=== PATIENT | male | born 1950 | race Caucasian/White ===

== ENCOUNTER 2018-01-24 08:38 | Outpatient (CLI) | payer BC, MEDICARE ==
[2018-01-24 09:00] VITALS: BMI 35.6
[2018-01-24 09:37] LABS: Bilirubin Negative (Negative); Blood, Urine Negative (Negative); Clarity CLOUDY (Clear); Glucose, Urine (Dipstick) Negative (Negative); Leukocyte Negative (Negative); Nitrite Negative (Negative); Protein, Urine (Dipstick) Negative (Neg-Trace); Specific Gravity, Urine 1.018 (1.002-1.036); Urobilinogen 0.2 mg/dL (0.2-1.0)
[2018-01-24 09:40] LABS: Bacteria/HPF None Seen HPF (None Seen); Hyaline Casts/LPF 0-3 HYALINE CAST LPF (0-3 Hyaline); Squamous Epithelial 0-3 HPF (0-3); WBC/HPF 0-3 HPF (0-3)
[2018-01-24 09:44] LABS: Yeast-AUWi Flag 111.2 (0-25.0)
[2018-01-24 09:55] LABS: RBC/HPF 0-3 HPF (0-3); Yeast-All Forms None Seen HPF (None Seen)
[2018-01-24 10:27] LABS: #Eosinphils 0.2 thou/uL (0.0-0.7); #Lymphocytes 1.5 thou/uL (1.20-3.40); #Monocytes 0.6 thou/uL (0.11-0.59); #Neutrophils 4.8 thou/uL (1.40-6.50); %Basophils 0.5 % (0.0-1.0); %Eosinophils 2.4 % (0.0-10.0); %Lymphocytes 21.4 % (21.0-51.0); %Monocytes 8.7 % (0.0-10.0); Mean Corpuscular HGB CONC 34.2 g/dL (32.0-36.0); Mean Corpuscular Hemoglobin 32.9 pg (27.0-31.0); Mean Corpuscular Volume 96.5 fl (80.0-94.0); Mean Platelet Volume 7.7 fL (7.4-10.4); Platelet Count 232 thou/uL (130-400); Red Blood Cell (RBC) Count 4.56 mill/uL (4.70-6.10); White Blood Cell (WBC) Count 7.2 thou/uL (4.8-10.8)
[2018-01-24 10:42] LABS: INR-International Normal Ratio 1.1; PTT 30.7 SEC (22.9-36.1); Prothrombin Time 13.8 SEC (12.0-14.7)
[2018-01-24 10:43] LABS: Anion Gap 11 mmol/L (10-20); BUN (Urea Nitrogen) 15 mg/dL (8.4-25.7); Calc. Creatinine Clearance 115 mL/min (70-130); Calcium 9.4 mg/dL (7.8-10.44); Carbon Dioxide 27 mmol/L (23-31); Chloride 105 mmol/L (98-107); Estimated GFR-MDRD 73; Glucose 114 mg/dL (80-115); Potassium 4.2 mmol/L (3.5-5.1); Sodium 139 mmol/L (136-145)
--- NOTE | 2018-01-24 16:36 | EKG ---
Test Reason : Blood Pressure : / mmHG Vent. Rate : 055 BPM Atrial Rate : 055 BPM P-R Int : 166 ms QRS Dur : 098 ms QT Int : 446 ms P-R-T Axes : 046 002 062 degrees QTc Int : 426 ms Sinus bradycardia Moderate voltage criteria for LVH, may be normal variant Borderline ECG When compared with ECG of 10-AUG-2016 15:12, No significant change was found Confirmed by DR. Berto ROUSSEAU ([id number]) on 01/24/2018 4:36:07 PM Referred By: TRACEYRO Confirmed By:DR. Berto ROUSSEAU
== END 2018-01-24 08:39 | disposition home or self-care (01) ==
LOC: LABBT 08:38
PROVIDERS: ATTEND Orthopaedic Surgery
DX: Z01.818 Encounter for other preprocedural examination (principal); M17.12 Unilateral primary osteoarthritis, left knee
CPT/HCPCS: 80048; 81001; 85025; 85610; 85730; 87081; 93005; 93010

== ENCOUNTER 2018-01-24 09:15 | Inpatient (IN) | payer BC, MEDICARE ==
[2018-02-06] MEDS ORDERED: Vancomycin HCl 1.5 GM in Sodium Chloride 0.9% 250 ML 300 ML IVPB SCH ×2 (06:15→18:00)
[2018-02-06] MEDS ORDERED: Midazolam HCl 2 mg/2 ml Vial ONE (06:29)
[2018-02-06] MEDS ORDERED: Fentanyl 100 MCG/2 ML VIAL ONE ×2 (06:29→09:48)
[2018-02-06] MEDS ORDERED: CEFAZOLIN/Water 2 GM/20 ML SYRINGE ONE (06:35)
[2018-02-06] MEDS ORDERED: Bupivacaine PF 0.5% 30 ML VIAL ONE (06:48)
[2018-02-06] MEDS ORDERED: Ondansetron HCl/PF 4 MG/2 ML Vial IVP PRN ×3 (06:49→09:23)
[2018-02-06] MEDS ORDERED: traMADol HCl 50 MG TAB PO PRN ×3 (06:49→07:31)
[2018-02-06] MEDS ORDERED: Promethazine HCl 25 MG/ML VIAL IM PRN ×3 (06:49→09:23)
[2018-02-06] MEDS ORDERED: HYDROcodone/Acetaminophen 10/325 mg Tablet PO PRN (06:49)
[2018-02-06] MEDS ORDERED: Ketorolac Tromethamine 30 MG/ML VIAL IVP PRN (06:49)
[2018-02-06] MEDS ORDERED: Fentanyl 100 MCG/2 ML VIAL IV PRN (06:50)
[2018-02-06] MEDS ORDERED: Acetaminophen 325 MG TAB PO PRN (07:31)
[2018-02-06] MEDS ORDERED: Zolpidem Tartrate 5 MG TAB PO PRN (07:31)
[2018-02-06] MEDS ORDERED: Tranexamic Acid 1,000 MG in Sodium Chloride 0.9% 100 ML IVPB SCH (07:45)
[2018-02-06] MEDS ORDERED: Ondansetron HCl/PF 4 MG/2 ML Vial ONE ×2 (08:58→11:25)
[2018-02-06] MEDS ORDERED: CeleCOXIB 100 MG CAP PO SCH (09:00)
[2018-02-06] MEDS ORDERED: Promethazine HCl 25 MG/ML VIAL SLOW IVP PRN (09:23)
--- NOTE | 2018-02-06 09:27 | OP ---
DATE OF PROCEDURE: 02/06/2018 PREOPERATIVE DIAGNOSIS: Left knee osteoarthrosis. POSTOPERATIVE DIAGNOSIS: Left knee osteoarthrosis. PROCEDURE PERFORMED: Left total knee replacement using [place] pinless navigation. SURGEON: Diony Suarez M.D. DIRECTOR PERIOPERATIVE: Benedict Richey PA-C. BLOOD LOSS: Minimal. ANESTHESIA: The patient had general anesthetic, also had a preoperative block. IMPLANTS: To the left knee, a [employer]velia Triathlon knee system, the femur was a size 6 cruciate retaini ng femur, size 5 universal tibial baseplate, size 5 x 9 mm CS X3 tibial-bearing, and an asymmetric 29 x 9 X3 patella. DISPOSITION: He went to the recovery room in stable condition. 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 PROCEDURE IN DETAIL: After all appropriate consent forms were explained and signed, the patient was taken back to the Operating Room and at this time was given general anesthetic. Once the level of an esthesia was appropriate, a well-padded tourniquet was placed on the left leg and the leg was then pr epped and draped in standard surgical fashion. The limb was exsanguinated and tourniquet taken up to 300 mmHg. Midline incision was made with a 10 blade down through the skin and subcutaneous tissue. Bovie electrocautery was used to coagulate any brisk venous bleeding. A new blade was used to make a medial parapatellar arthrotomy. Small subperiosteal release was performed medially and excess fat pad was removed. The knee was flexed up to gain access to the femur. The femur was navigated and di stal femoral resection was made. Epicondylar access was used to align our sizing jig and this was pi nned in place. We sized our femur to be a size 6 cruciate retaining femur, 4:1 cutting block was aram lied and pinned. Anterior and posterior chamfer cuts were then made. We navigated out our proximal tibia and made our proximal tibial resection. Spreaders were used to remove any posterior osteophyte s off the back of the femur as well as remaining meniscal tissue. A long alignment tammy was then used to achieve correct rotation of our tibial baseplate and a size 5 universal tibial baseplate was chos en. This was pinned in place. We trialed the polyethylene and a size 5 x 9 mm CS X3 tibial-bearing polyethylene gave us full extension and good stability throughout range of motion. Two towel clips a nd a saw were used to cut our patella. Three lug nuts were drilled and an asymmetric 29 x 9 X3 vieira la was trialed which sat nicely in the trochlear groove. We then drilled our femur and punched our t ibia. All components were removed. The knee was thoroughly irrigated and dried. Cement was mixed i nto the cement gun on the back table. Components were then placed. The knee was held out in full ex tension until the cement had dried. All excess bone cement was removed. Multiple #2 Vicryl stitches as well as a Quill was used to close our extensor mechanism. 0 Quill followed by a running Monoderm was then used to close the skin. Surgicel glue was then used on the skin. Once this had dried, sof t tissue dressing was applied to the limb, tourniquet was let down, and the toes pinked up nicely. T he patient was then awakened and taken to the Recovery Room in stable condition. All counts were cor rect at the end of the case. The patient did receive preoperative IV antibiotics. The patient was i njected with Exparel for postoperative pain relief.
[2018-02-06] MEDS ORDERED: PROPOFOL 200 MG/20 ML VIAL ONE (11:25)
[2018-02-06] MEDS ORDERED: Ketorolac Tromethamine 30 MG/ML VIAL ONE (11:25)
[2018-02-06] MEDS ORDERED: Metoprolol Tartrate 5 MG/5 ML VIAL ONE (11:25)
[2018-02-06] MEDS ORDERED: Dexamethasone 20 MG/5 ML VIAL ONE (11:25)
[2018-02-06] MEDS: Sodium Chloride 0.9% 1,000 ML IV SCH ×2 (11:26→17:51)
[2018-02-06] MEDS ORDERED: Losartan 25 MG TAB PO SCH (11:30)
[2018-02-06] MEDS: Aspirin 81 mg Enteric Coated Tablet PO SCH ×2 (11:35→20:36)
[2018-02-06] MEDS: HYDROcodone/Acetaminophen 10/325 mg Tablet PO PRN ×2 (11:44→20:39)
[2018-02-06] MEDS ORDERED: hydrALAZINE 20 MG/ML VIAL SLOW IVP PRN ×2 (12:05→17:01)
[2018-02-06 12:18] VITALS: BMI 36.9
[2018-02-06] MEDS ORDERED: Bupivacaine 0.25% HCL 30 ML VIAL ONE (12:42)
[2018-02-06] MEDS ORDERED: Ropivacaine 0.5% HCl/PF (150 MG/30 ML VIAL) ONE (12:42)
[2018-02-06] MEDS: CEFAZOLIN/Water 2 GM/20 ML SYRINGE SLOW IVP SCH ×2 (15:39→23:03)
--- NOTE | 2018-02-06 17:00 | PDOC.PN ---
- Subjective Encounter Start Date: 02/06/18 Encounter Start Time: 15:00 Pt seen for management of medical comorbidities, including hypertension. Denies chest pain, shortness of breath, fevers or chills. No nausea or vomiting. - Objective MAR Reviewed: Yes Vital Signs & Weight: Vital Signs (12 hours) Temp Pulse Resp BP BP Pulse Ox 02/06/18 15:57 76 172/83 H 02/06/18 12:00 98.0 F 59 L 18 99 02/06/18 10:45 98.0 F 59 L 18 158/74 H 99 Weight Weight 265 lb Phys Exam - Physical Examination Obese HEENT: moist MMs, oral pharynx no lesions Neck: supple Respiratory: clear to auscultation bilateral Cardiovascular: RRR Gastrointestinal: soft s/p L knee surgery Neurological: moves all 4 limbs Psychiatric: normal affect Skin: no rash Dx/Plan (1) Hypertension Code(s): I10 - ESSENTIAL (PRIMARY) HYPERTENSION Status: Chronic Comment: resume home medications, monitor vital signs and titrate antihypertensives as needed. PRN IV hydralazine for blood pressure spikes. (2) BPH (benign prostatic hyperplasia) Code(s): N40.0 - BENIGN PROSTATIC HYPERPLASIA WITHOUT LOWER URINRY TRACT SYMP Status: Chronic Comment: resume home medications. (3) Arthritis Code(s): M19.90 - UNSPECIFIED OSTEOARTHRITIS, UNSPECIFIED SITE Status: Chronic Comment: s/p L knee surgery. pain management and DVT prophylaxis per orthopedic surgery - Plan * . Code status: Full Review of Systems - Medications/Allergies Allergies/Adverse Reactions: Allergies Allergy/AdvReac Type Severity Reaction Status Date / Time No Known Allergies Allergy Unverified 08/10/16 14:47 Medications: Current Medications Acetaminophen (Tylenol) 650 mg PO Q4H PRN PRN Reason: ARELLANO/ T > 101F; Mild Pain (1-3) Hydrocodone Bitart/Acetaminophen ([place] 10/325) 1 tab PO Q4H PRN PRN Reason: Pain (1-3) Hydrocodone Bitart/Acetaminophen ([place] 10/325) 2 tab PO Q4H PRN PRN Reason: PAIN (4-6) Last Admin: 02/06/18 11:44 Dose: 2 tab Aspirin (Ecotrin) 81 mg PO BID [facility] Last Admin: 02/06/18 11:35 Dose: 81 mg Cefazolin Sodium (Ancef) 2 gm SLOW IVP 1500,2300 [facility] Stop: 02/06/18 23:01 Last Admin: 02/06/18 15:39 Dose: 2 gm Celecoxib (Celebrex) 200 mg PO DAILY [facility] Diphenhydramine HCl (Benadryl) 25 mg PO Q6H PRN PRN Reason: Itching Fentanyl (Sublimaze) 50 mcg IV Q1H PRN PRN Reason: BREAKTHROUGH PAIN Ferrous Gluconate (Fergon) 324 mg PO BID [facility] Hydralazine HCl (Apresoline) 10 mg SLOW IVP Q6H PRN PRN Reason: SBP Greater Than 170 Last Admin: 02/06/18 15:57 Dose: 10 mg Bupivacaine HCl 50 ml/ Sodium (Chloride) 100 mls @ 0 mls/hr NERVE BLCK INF [facility] PRN Reason: As Directed Sodium Chloride (Normal Saline 0.9%) 1,000 mls @ 100 mls/hr IV .Q10H [facility] Last Admin: 02/06/18 11:26 Dose: Not Given Vancomycin HCl 1.5 gm/ Sodium (Chloride) 300 mls @ 200 mls/hr IVPB 1800 [facility] Stop: 02/06/18 20:00 Iron/Minerals/Multivitamins (Theragran M) 1 tab PO DAILY [facility] Ketorolac Tromethamine (Toradol) 15 mg IVP Q6H PRN PRN Reason: Moderate Pain (4-6) Stop: 02/09/18 06:50 Losartan Potassium (Cozaar) 100 mg PO DAILY [facility] Ondansetron HCl (Zofran) 4 mg IVP Q6H PRN PRN Reason: Nausea/Vomiting Lutein 80 Mg Cap 0 each PO DAILY [facility] Pneumococcal 13-Valent Conj Vacc (Prevnar) 0.5 ml IM .ONCE ONE Stop: 02/06/18 21:01 Promethazine HCl (Phenergan) 12.5 mg IM Q4H PRN PRN Reason: Nausea Senna/Docusate Sodium (Senokot S) 2 tab PO BID [facility] Sodium Chloride (Flush - Normal Saline) 10 ml IVF Q12HR [facility] Last Admin: 02/06/18 11:31 Dose: Not Given Sodium Chloride (Flush - Normal Saline) 10 ml IVF PRN PRN PRN Reason: Saline Flush Sodium Chloride (Flush - Normal Saline) 10 ml IVF PRN PRN PRN Reason: Saline Flush Tamsulosin HCl (Flomax) 0.4 mg PO DAILY [facility] Tramadol HCl (Ultram) 50 mg PO Q6H PRN PRN Reason: Mild Pain (1-3) Tramadol HCl (Ultram) 100 mg PO Q6H PRN PRN Reason: Moderate Pain 4-6 Zolpidem Tartrate (Ambien) 5 mg PO HSPRN PRN PRN Reason: Insomnia
[2018-02-06] MEDS: Zolpidem Tartrate 5 MG TAB PO PRN (20:39)
[2018-02-06] MEDS ORDERED: Prevnar 13-Val Conj/PF 0.5 ML SYRINGE IM ONE (21:00)
[2018-02-06] MEDS: Bupivacaine 0.5% 50 ML in Sodium Chloride 0.9% 50 ML NERVE BLCK SCH (23:03)
[2018-02-06] MEDS: diphenhydrAMINE 25 MG CAP PO PRN (23:16)
[2018-02-07] MEDS: Sodium Chloride 0.9% 1,000 ML IV SCH ×3 (02:49→22:23)
[2018-02-07] MEDS: HYDROcodone/Acetaminophen 10/325 mg Tablet PO PRN ×4 (05:00→22:20)
[2018-02-07 05:32] LABS: Hemoglobin 13.2 g/dL (14.0-18.0); Mean Corpuscular HGB CONC 33.8 g/dL (32.0-36.0); Mean Corpuscular Hemoglobin 33.1 pg (27.0-31.0); Mean Corpuscular Volume 97.9 fl (80.0-94.0); Mean Platelet Volume 7.4 fL (7.4-10.4); Platelet Count 228 thou/uL (130-400); RBC Distribution Width 12.2 % (11.5-14.5); Red Blood Cell (RBC) Count 3.97 mill/uL (4.70-6.10); White Blood Cell (WBC) Count 15.9 thou/uL (4.8-10.8)
[2018-02-07] MEDS: Aspirin 81 mg Enteric Coated Tablet PO SCH ×2 (08:42→22:00)
[2018-02-07] MEDS: Losartan 25 MG TAB PO SCH (08:43)
[2018-02-07] MEDS: Tamsulosin HCl 0.4 MG CAP PO SCH ×2 (08:44→22:00)
[2018-02-07] MEDS: Multivitamin W/ Minerals 1 TAB PO SCH (08:44)
[2018-02-07] MEDS: Senokot S 8.6-50 MG TAB PO SCH ×2 (08:44→22:00)
[2018-02-07] MEDS: Ferrous Gluconate 324 MG TAB PO SCH ×2 (08:44→22:00)
[2018-02-07] MEDS ORDERED: LUTEIN PO SCH (09:00)
--- NOTE | 2018-02-07 11:07 | PRG ---
DATE OF SERVICE: 02/07/2018 SUBJECTIVE: Mychal is a 67-year-old white male, who is postop day #1 from a left total knee arthro plasty. Subjectively, he is doing relatively well, but he still describes his pain as 8 or 9. His b lock seems to be working very well subjectively, because he tells me he cannot move his toes very wel l. Otherwise, he is taking oral medicines in conjunction with his block. OBJECTIVE: VITAL SIGNS: Temperature 98.9, pulse 77, blood pressure is 127/76, respiratory rate 16, O2 saturatio ns 95% on room air. GENERAL: He is alert and oriented to person, place, time, and situation. Grossly nonfocal. Appropr iate with examiner and converses easily. He does not appear to be in great pain, as he can carry on a conversation in a very cogent fashion. He is neurovascularly intact in both lower extremities, but he does have a dense block on the left. There is no strike through at the wound. I see no bleeding . LABORATORY DATA: His hemoglobin and hematocrit are 13.2 and 38.9 and stable. IMPRESSION: A 67-year-old white male, 1. Postoperative day #1 left total knee arthroplasty, doing relatively well. 2. Mild postoperative hemorrhagic anemia. PLAN: Continue current management. Home discharge tomorrow.
[2018-02-07 11:17] LABS: #Lymphocytes 1.3 thou/uL (1.20-3.40); #Monocytes 1.3 thou/uL (0.11-0.59); #Neutrophils 13.8 thou/uL (1.40-6.50); %Eosinophils 0.2 % (0.0-10.0); %Lymphocytes 7.7 % (21.0-51.0); %Neutrophils 84.2 % (42.0-75.0); Hemoglobin 13.2 g/dL (14.0-18.0); Mean Corpuscular HGB CONC 33.9 g/dL (32.0-36.0); Mean Corpuscular Hemoglobin 33.6 pg (27.0-31.0); Mean Corpuscular Volume 99.1 fl (80.0-94.0); Mean Platelet Volume 7.9 fL (7.4-10.4); Platelet Count 220 thou/uL (130-400); RBC Distribution Width 12.3 % (11.5-14.5); Red Blood Cell (RBC) Count 3.93 mill/uL (4.70-6.10); White Blood Cell (WBC) Count 16.4 thou/uL (4.8-10.8)
[2018-02-07 12:16] LABS: Band 19 % (5-11); Lymphocytes 7 % (21-51); Monocytes 7 % (0-10); PLT Morphology Comment Appears Adequate; Reactive Lymphocytes 3 % (0-10)
[2018-02-07] MEDS ORDERED: Sodium Chloride 0.9% 500 ML IV SCH (13:00)
[2018-02-07] MEDS: Bupivacaine 0.5% 50 ML in Sodium Chloride 0.9% 50 ML NERVE BLCK SCH (13:46)
[2018-02-07] MEDS: Cepastat Lozenges 1 LOZ PO PRN ×2 (16:52→22:17)
[2018-02-07] MEDS: diphenhydrAMINE 25 MG CAP PO PRN (22:14)
[2018-02-07] MEDS: Zolpidem Tartrate 5 MG TAB PO PRN (22:14)
[2018-02-08] MEDS: Bupivacaine 0.5% 50 ML in Sodium Chloride 0.9% 50 ML NERVE BLCK SCH ×2 (02:39→15:19)
[2018-02-08] MEDS: HYDROcodone/Acetaminophen 10/325 mg Tablet PO PRN ×4 (02:45→20:45)
[2018-02-08 05:55] LABS: Hemoglobin 12.2 g/dL (14.0-18.0); Mean Corpuscular HGB CONC 33.5 g/dL (32.0-36.0); Mean Corpuscular Hemoglobin 32.8 pg (27.0-31.0); Mean Corpuscular Volume 98.1 fl (80.0-94.0); Mean Platelet Volume 7.6 fL (7.4-10.4); Platelet Count 199 thou/uL (130-400); RBC Distribution Width 12.1 % (11.5-14.5); Red Blood Cell (RBC) Count 3.71 mill/uL (4.70-6.10)
--- NOTE | 2018-02-08 07:20 | PDOC.PN ---
- Subjective Encounter Start Date: 02/07/18 Encounter Start Time: 13:45 Subjective: pt up in bed no complains, saw pt earlier walking - Objective Vital Signs & Weight: Vital Signs (12 hours) Temp Pulse Resp BP Pulse Ox 02/08/18 00:20 98.5 F 83 19 164/79 H 93 L 02/07/18 20:00 98.4 F 80 18 161/77 H 93 L Weight Admit Weight 265 lb Weight 265 lb I&O: 02/07/18 02/08/18 02/09/18 06:59 06:59 06:59 Intake Total 2276 920 Output Total 800 600 Balance 1476 320 Result Diagrams: 02/08/18 05:06 Phys Exam - Physical Examination HEENT: PERRLA, moist MMs, sclera anicteric, TM's clear, oral pharynx no lesions , 2+ tonsils Neck: no nodes, no JVD, supple, full ROM Respiratory: no wheezing, no rales, no rhonchi, wheezing present, clear to auscultation bilateral Cardiovascular: RRR, no significant murmur, no rub, gallop, irregular Gastrointestinal: soft, non-tender, no distention, positive bowel sounds Musculoskeletal: no edema, pulses present, edema present Neurological: non-focal, normal sensation, moves all 4 limbs Dx/Plan - Plan 1) Htn 2) bph 3) leukocytosis plan: will continue pt's home meds. pt has been urinating without any issues. stool softener added. pt states that he will drink prune juice today. pt is afebrile, ua done 5/1 normal. will monitor. * . Review of Systems - Review of Systems Eyes: negative: Pain, Vision Change, Conjunctivae Inflammation, Eyelid Inflammation, Redness, Other ENT: negative: Ear Pain, Ear Discharge, Nose Pain, Nose Discharge, Nose Congestion, Mouth Pain, Mouth Swelling, Throat Pain, Throat Swelling, Other Respiratory: negative: Cough, Dry, Shortness of Breath, Hemoptysis, SOB with Excertion, Pleuritic Pain, Sputum, Wheezing Cardiovascular: negative: chest pain, palpitations, orthopnea, paroxysmal nocturnal dyspnea, edema, light headedness, other Gastrointestinal: negative: Nausea, Vomiting, Abdominal Pain, Diarrhea, Constipation, Melena, Hematochezia, Other Genitourinary: negative: Dysuria, Frequency, Incontinence, Hematuria, Retention , Other - Medications/Allergies Allergies/Adverse Reactions: Allergies Allergy/AdvReac Type Severity Reaction Status Date / Time No Known Allergies Allergy Unverified 08/10/16 14:47 Medications: Current Medications Acetaminophen (Tylenol) 650 mg PO Q4H PRN PRN Reason: ARELLANO/ T > 101F; Mild Pain (1-3) Hydrocodone Bitart/Acetaminophen ([place] 10/325) 1 tab PO Q4H PRN PRN Reason: Pain (1-3) Hydrocodone Bitart/Acetaminophen ([place] 10/325) 2 tab PO Q4H PRN PRN Reason: PAIN (4-6) Last Admin: 02/08/18 02:45 Dose: 2 tab Aspirin (Ecotrin) 81 mg PO BID [facility] Last Admin: 02/07/18 22:00 Dose: 81 mg Celecoxib (Celebrex) 200 mg PO DAILY [facility] Diphenhydramine HCl (Benadryl) 25 mg PO Q6H PRN PRN Reason: Itching Last Admin: 02/07/18 22:14 Dose: 25 mg Fentanyl (Sublimaze) 50 mcg IV Q1H PRN PRN Reason: BREAKTHROUGH PAIN Ferrous Gluconate (Fergon) 324 mg PO BID [facility] Last Admin: 02/07/18 22:00 Dose: 324 mg Hydralazine HCl (Apresoline) 10 mg SLOW IVP Q6H PRN PRN Reason: SBP Greater Than 170 Bupivacaine HCl 50 ml/ Sodium (Chloride) 100 mls @ 0 mls/hr NERVE BLCK INF [facility] PRN Reason: As Directed Last Admin: 02/08/18 02:39 Dose: 100 mls Sodium Chloride (Normal Saline 0.9%) 1,000 mls @ 100 mls/hr IV .Q10H [facility] Last Admin: 02/07/18 22:23 Dose: Not Given Iron/Minerals/Multivitamins (Theragran M) 1 tab PO DAILY [facility] Last Admin: 02/07/18 08:44 Dose: 1 tab Ketorolac Tromethamine (Toradol) 15 mg IVP Q6H PRN PRN Reason: Moderate Pain (4-6) Stop: 02/09/18 06:50 Last Admin: 02/07/18 08:35 Dose: 15 mg Losartan Potassium (Cozaar) 100 mg PO DAILY [facility] Last Admin: 02/07/18 08:43 Dose: 100 mg Losartan Potassium (Cozaar) 100 mg PO DAILY [facility] Ondansetron HCl (Zofran) 4 mg IVP Q6H PRN PRN Reason: Nausea/Vomiting Promethazine HCl (Phenergan) 12.5 mg IM Q4H PRN PRN Reason: Nausea Senna/Docusate Sodium (Senokot S) 2 tab PO BID [facility] Last Admin: 02/07/18 22:00 Dose: 2 tab Sodium Chloride (Flush - Normal Saline) 10 ml IVF Q12HR [facility] Last Admin: 02/07/18 22:00 Dose: 10 ml Sodium Chloride (Flush - Normal Saline) 10 ml IVF PRN PRN PRN Reason: Saline Flush Sodium Chloride (Flush - Normal Saline) 10 ml IVF PRN PRN PRN Reason: Saline Flush Tamsulosin HCl (Flomax) 0.4 mg PO DAILY [facility] Last Admin: 02/07/18 08:44 Dose: 0.4 mg Tamsulosin HCl (Flomax) 0.4 mg PO HS [facility] Last Admin: 02/07/18 22:00 Dose: 0.4 mg Throat Lozenges (Cepastat Lozenges) 1 beverly PO Q2H PRN PRN Reason: Sore Throat Last Admin: 02/07/18 22:17 Dose: 1 beverly Tramadol HCl (Ultram) 50 mg PO Q6H PRN PRN Reason: Mild Pain (1-3) Tramadol HCl (Ultram) 100 mg PO Q6H PRN PRN Reason: Moderate Pain 4-6 Zolpidem Tartrate (Ambien) 5 mg PO HSPRN PRN PRN Reason: Insomnia Last Admin: 02/07/18 22:14 Dose: 5 mg
[2018-02-08 08:36] LABS: Hemoglobin 12.5 g/dL (14.0-18.0); Mean Corpuscular HGB CONC 33.1 g/dL (32.0-36.0); Mean Corpuscular Hemoglobin 32.7 pg (27.0-31.0); Mean Corpuscular Volume 98.6 fl (80.0-94.0); Mean Platelet Volume 7.4 fL (7.4-10.4); Platelet Count 204 thou/uL (130-400); RBC Distribution Width 12.1 % (11.5-14.5); Red Blood Cell (RBC) Count 3.81 mill/uL (4.70-6.10)
[2018-02-08] MEDS: Tamsulosin HCl 0.4 MG CAP PO SCH ×2 (08:59→20:45)
[2018-02-08] MEDS: Aspirin 81 mg Enteric Coated Tablet PO SCH ×2 (08:59→20:44)
[2018-02-08] MEDS: Losartan 25 MG TAB PO SCH ×2 (08:59→09:01)
[2018-02-08] MEDS: Multivitamin W/ Minerals 1 TAB PO SCH (08:59)
[2018-02-08] MEDS: Ferrous Gluconate 324 MG TAB PO SCH ×2 (09:00→20:44)
[2018-02-08] MEDS: Senokot S 8.6-50 MG TAB PO SCH ×2 (09:00→20:44)
[2018-02-08 10:33] LABS: Band 9 % (5-11); Lymphocytes 13 % (21-51); MDiff Complete? YES; Monocytes 13 % (0-10); Neutrophil 65 % (42-75); RBC Morphology Normal
--- NOTE | 2018-02-08 14:11 | PDOC.PN ---
- Subjective Encounter Start Date: 02/08/18 Encounter Start Time: 13:00 Subjective: pt up in bed no complains - Objective Vital Signs & Weight: Vital Signs (12 hours) Temp Pulse Resp BP BP Pulse Ox 02/08/18 11:35 97.6 F 85 18 142/84 H 96 02/08/18 08:02 98.3 F 84 18 134/75 91 L 02/08/18 04:00 98.6 F 84 18 166/94 H 98 Weight Admit Weight 265 lb Weight 265 lb I&O: 02/07/18 02/08/18 02/09/18 06:59 06:59 06:59 Intake Total 2276 920 1056 Output Total 800 600 850 Balance 1476 320 206 Result Diagrams: 02/08/18 08:06 Phys Exam - Physical Examination HEENT: PERRLA, moist MMs, sclera anicteric, TM's clear, oral pharynx no lesions , 2+ tonsils Neck: no nodes, no JVD, supple, full ROM Respiratory: no wheezing, no rales, no rhonchi, wheezing present, clear to auscultation bilateral Cardiovascular: RRR, no significant murmur, no rub, gallop, irregular Gastrointestinal: soft, non-tender, no distention, positive bowel sounds left knee in dressing Dx/Plan - Plan 1) Htn 2) bph 3) leukocytosis plan: will continue pt's home meds. pt has been urinating without any issues. stool softener added. pt states that he will drink prune juice today. pt is afebrile, ua done 01/24 normal. will monitor. 02/08 pt has not had bm but has flatus. wbc improving bands minimal. * . Review of Systems - Review of Systems Eyes: negative: Pain, Vision Change, Conjunctivae Inflammation, Eyelid Inflammation, Redness, Other ENT: negative: Ear Pain, Ear Discharge, Nose Pain, Nose Discharge, Nose Congestion, Mouth Pain, Mouth Swelling, Throat Pain, Throat Swelling, Other Genitourinary: negative: Dysuria, Frequency, Incontinence, Hematuria, Retention , Other - Medications/Allergies Allergies/Adverse Reactions: Allergies Allergy/AdvReac Type Severity Reaction Status Date / Time No Known Allergies Allergy Unverified 08/10/16 14:47 Medications: Current Medications Acetaminophen (Tylenol) 650 mg PO Q4H PRN PRN Reason: ARELLANO/ T > 101F; Mild Pain (1-3) Hydrocodone Bitart/Acetaminophen ([place] 10/325) 1 tab PO Q4H PRN PRN Reason: Pain (1-3) Hydrocodone Bitart/Acetaminophen ([place] 10/325) 2 tab PO Q4H PRN PRN Reason: PAIN (4-6) Last Admin: 02/08/18 08:58 Dose: 2 tab Aspirin (Ecotrin) 81 mg PO BID [facility] Last Admin: 02/08/18 08:59 Dose: 81 mg Celecoxib (Celebrex) 200 mg PO DAILY [facility] Diphenhydramine HCl (Benadryl) 25 mg PO Q6H PRN PRN Reason: Itching Last Admin: 02/07/18 22:14 Dose: 25 mg Fentanyl (Sublimaze) 50 mcg IV Q1H PRN PRN Reason: BREAKTHROUGH PAIN Ferrous Gluconate (Fergon) 324 mg PO BID [facility] Last Admin: 02/08/18 09:00 Dose: 324 mg Hydralazine HCl (Apresoline) 10 mg SLOW IVP Q6H PRN PRN Reason: SBP Greater Than 170 Bupivacaine HCl 50 ml/ Sodium (Chloride) 100 mls @ 0 mls/hr NERVE BLCK INF [facility] PRN Reason: As Directed Last Admin: 02/08/18 02:39 Dose: 100 mls Sodium Chloride (Normal Saline 0.9%) 1,000 mls @ 100 mls/hr IV .Q10H [facility] Last Admin: 02/07/18 22:23 Dose: Not Given Iron/Minerals/Multivitamins (Theragran M) 1 tab PO DAILY [facility] Last Admin: 02/08/18 08:59 Dose: 1 tab Ketorolac Tromethamine (Toradol) 15 mg IVP Q6H PRN PRN Reason: Moderate Pain (4-6) Stop: 02/09/18 06:50 Last Admin: 02/07/18 08:35 Dose: 15 mg Losartan Potassium (Cozaar) 100 mg PO DAILY [facility] Last Admin: 02/08/18 08:59 Dose: 100 mg Losartan Potassium (Cozaar) 100 mg PO DAILY [facility] Last Admin: 02/08/18 09:01 Dose: Not Given Ondansetron HCl (Zofran) 4 mg IVP Q6H PRN PRN Reason: Nausea/Vomiting Promethazine HCl (Phenergan) 12.5 mg IM Q4H PRN PRN Reason: Nausea Senna/Docusate Sodium (Senokot S) 2 tab PO BID [facility] Last Admin: 02/08/18 09:00 Dose: Not Given Sodium Chloride (Flush - Normal Saline) 10 ml IVF Q12HR [facility] Last Admin: 02/08/18 09:01 Dose: Not Given Sodium Chloride (Flush - Normal Saline) 10 ml IVF PRN PRN PRN Reason: Saline Flush Sodium Chloride (Flush - Normal Saline) 10 ml IVF PRN PRN PRN Reason: Saline Flush Tamsulosin HCl (Flomax) 0.4 mg PO DAILY [facility] Last Admin: 02/08/18 08:59 Dose: 0.4 mg Tamsulosin HCl (Flomax) 0.4 mg PO HS [facility] Last Admin: 02/07/18 22:00 Dose: 0.4 mg Throat Lozenges (Cepastat Lozenges) 1 beverly PO Q2H PRN PRN Reason: Sore Throat Last Admin: 02/07/18 22:17 Dose: 1 beverly Tramadol HCl (Ultram) 50 mg PO Q6H PRN PRN Reason: Mild Pain (1-3) Tramadol HCl (Ultram) 100 mg PO Q6H PRN PRN Reason: Moderate Pain 4-6 Zolpidem Tartrate (Ambien) 5 mg PO HSPRN PRN PRN Reason: Insomnia Last Admin: 02/07/18 22:14 Dose: 5 mg
[2018-02-08] MEDS: Sodium Chloride 0.9% 1,000 ML IV SCH ×3 (16:35→22:49)
[2018-02-08] MEDS: diphenhydrAMINE 25 MG CAP PO PRN (20:48)
[2018-02-08] MEDS: Zolpidem Tartrate 5 MG TAB PO PRN (20:48)
[2018-02-09] MEDS: HYDROcodone/Acetaminophen 10/325 mg Tablet PO PRN ×4 (03:17→19:52)
[2018-02-09] MEDS: Bupivacaine 0.5% 50 ML in Sodium Chloride 0.9% 50 ML NERVE BLCK SCH (03:57)
[2018-02-09 05:32] LABS: Band 4 % (5-11); Eosinophils 1 % (0-10); Hemoglobin 11.8 g/dL (14.0-18.0); Lymphocytes 10 % (21-51); MDiff Complete? YES; Macrocytosis SLIGHT = 6-15 cells (100X) (0-5/hpf); Mean Corpuscular HGB CONC 34.6 g/dL (32.0-36.0); Mean Corpuscular Hemoglobin 34.2 pg (27.0-31.0); Mean Corpuscular Volume 98.9 fl (80.0-94.0); Mean Platelet Volume 7.8 fL (7.4-10.4); Monocytes 10 % (0-10); Neutrophil 75 % (42-75); PLT Morphology Comment Appears Adequate; Platelet Count 196 thou/uL (130-400); Red Blood Cell (RBC) Count 3.46 mill/uL (4.70-6.10)
[2018-02-09] MEDS: CeleCOXIB 100 MG CAP PO SCH (08:40)
[2018-02-09] MEDS: Losartan 25 MG TAB PO SCH (08:40)
[2018-02-09] MEDS: Multivitamin W/ Minerals 1 TAB PO SCH (08:40)
[2018-02-09] MEDS: Senokot S 8.6-50 MG TAB PO SCH ×2 (08:40→19:51)
[2018-02-09] MEDS: Aspirin 81 mg Enteric Coated Tablet PO SCH ×2 (08:40→19:52)
[2018-02-09] MEDS: Ferrous Gluconate 324 MG TAB PO SCH ×2 (08:40→19:52)
[2018-02-09] MEDS: Sodium Chloride 0.9% 1,000 ML IV SCH ×2 (17:28→19:53)
[2018-02-09] MEDS: Tamsulosin HCl 0.4 MG CAP PO SCH (19:52)
[2018-02-09] MEDS: Zolpidem Tartrate 5 MG TAB PO PRN (19:58)
[2018-02-09] MEDS: diphenhydrAMINE 25 MG CAP PO PRN (19:58)
[2018-02-10] MEDS: HYDROcodone/Acetaminophen 10/325 mg Tablet PO PRN ×4 (01:45→13:55)
[2018-02-10 05:46] LABS: Hemoglobin 11.4 g/dL (14.0-18.0); Mean Corpuscular HGB CONC 34.2 g/dL (32.0-36.0); Mean Corpuscular Hemoglobin 33.9 pg (27.0-31.0); Mean Platelet Volume 7.3 fL (7.4-10.4); Platelet Count 245 thou/uL (130-400); Red Blood Cell (RBC) Count 3.38 mill/uL (4.70-6.10); White Blood Cell (WBC) Count 9.6 thou/uL (4.8-10.8)
--- NOTE | 2018-02-10 05:49 | PDOC.PN ---
- Subjective Encounter Start Date: 02/09/18 Encounter Start Time: 10:35 Subjective: pt up in bed no complains - Objective Vital Signs & Weight: Vital Signs (12 hours) Temp Pulse Resp BP BP Pulse Ox 02/10/18 04:03 98.2 F 77 18 125/68 92 L 02/09/18 23:25 98.2 F 81 16 121/76 90 L 02/09/18 20:10 98.1 F 91 18 135/79 94 L 02/09/18 20:00 98.1 F 91 18 94 L Weight Admit Weight 265 lb Weight 265 lb I&O: 02/08/18 02/09/18 02/10/18 06:59 06:59 06:59 Intake Total 920 1546 610 Output Total 600 1650 Balance 320 -104 610 Result Diagrams: 02/10/18 05:19 Phys Exam - Physical Examination HEENT: PERRLA, moist MMs, sclera anicteric, TM's clear, oral pharynx no lesions , 2+ tonsils Neck: no nodes, no JVD, supple, full ROM Respiratory: no wheezing, no rales, no rhonchi, wheezing present, clear to auscultation bilateral Cardiovascular: RRR, no significant murmur, no rub, gallop, irregular Gastrointestinal: soft, non-tender, no distention, positive bowel sounds left knee in jun wrap Dx/Plan - Plan 1) Htn 2) bph 3) leukocytosis plan: will continue pt's home meds. pt has been urinating without any issues. stool softener added. pt states that he will drink prune juice today. pt is afebrile, ua done 01/24 normal. will monitor. 02/08 pt has not had bm but has flatus. wbc improving bands minimal. 02/09 wbc normal, bp stable. pt encouraged to do IS more often. will signoff. pt stable to be discharged medically. * . Review of Systems - Review of Systems Eyes: negative: Pain, Vision Change, Conjunctivae Inflammation, Eyelid Inflammation, Redness, Other ENT: negative: Ear Pain, Ear Discharge, Nose Pain, Nose Discharge, Nose Congestion, Mouth Pain, Mouth Swelling, Throat Pain, Throat Swelling, Other Respiratory: negative: Cough, Dry, Shortness of Breath, Hemoptysis, SOB with Excertion, Pleuritic Pain, Sputum, Wheezing Cardiovascular: negative: chest pain, palpitations, orthopnea, paroxysmal nocturnal dyspnea, edema, light headedness, other Gastrointestinal: negative: Nausea, Vomiting, Abdominal Pain, Diarrhea, Constipation, Melena, Hematochezia, Other Genitourinary: negative: Dysuria, Frequency, Incontinence, Hematuria, Retention , Other Musculoskeletal: negative: Neck Pain, Shoulder Pain, Arm Pain, Back Pain, Hand Pain, Leg Pain, Foot Pain, Other - Medications/Allergies Allergies/Adverse Reactions: Allergies Allergy/AdvReac Type Severity Reaction Status Date / Time No Known Allergies Allergy Unverified 08/10/16 14:47 Medications: Current Medications Acetaminophen (Tylenol) 650 mg PO Q4H PRN PRN Reason: ARELLANO/ T > 101F; Mild Pain (1-3) Hydrocodone Bitart/Acetaminophen ([place] 10/325) 1 tab PO Q4H PRN PRN Reason: Pain (1-3) Hydrocodone Bitart/Acetaminophen ([place] 10/325) 2 tab PO Q4H PRN PRN Reason: PAIN (4-6) Last Admin: 02/10/18 01:45 Dose: 2 tab Aspirin (Ecotrin) 81 mg PO BID [facility] Last Admin: 02/09/18 19:52 Dose: 81 mg Celecoxib (Celebrex) 200 mg PO DAILY [facility] Last Admin: 02/09/18 08:40 Dose: 200 mg Diphenhydramine HCl (Benadryl) 25 mg PO Q6H PRN PRN Reason: Itching Last Admin: 02/09/18 19:58 Dose: 25 mg Fentanyl (Sublimaze) 50 mcg IV Q1H PRN PRN Reason: BREAKTHROUGH PAIN Ferrous Gluconate (Fergon) 324 mg PO BID [facility] Last Admin: 02/09/18 19:52 Dose: 324 mg Hydralazine HCl (Apresoline) 10 mg SLOW IVP Q6H PRN PRN Reason: SBP Greater Than 170 Bupivacaine HCl 50 ml/ Sodium (Chloride) 100 mls @ 0 mls/hr NERVE BLCK INF [facility] PRN Reason: As Directed Last Admin: 02/09/18 03:57 Dose: 100 mls Sodium Chloride (Normal Saline 0.9%) 1,000 mls @ 100 mls/hr IV .Q10H [facility] Last Admin: 02/09/18 19:53 Dose: Not Given Iron/Minerals/Multivitamins (Theragran M) 1 tab PO DAILY [facility] Last Admin: 02/09/18 08:40 Dose: 1 tab Losartan Potassium (Cozaar) 100 mg PO DAILY [facility] Last Admin: 02/09/18 08:40 Dose: 100 mg Ondansetron HCl (Zofran) 4 mg IVP Q6H PRN PRN Reason: Nausea/Vomiting Promethazine HCl (Phenergan) 12.5 mg IM Q4H PRN PRN Reason: Nausea Senna/Docusate Sodium (Senokot S) 2 tab PO BID [facility] Last Admin: 02/09/18 19:51 Dose: 2 tab Sodium Chloride (Flush - Normal Saline) 10 ml IVF Q12HR [facility] Last Admin: 02/09/18 19:53 Dose: 10 ml Sodium Chloride (Flush - Normal Saline) 10 ml IVF PRN PRN PRN Reason: Saline Flush Sodium Chloride (Flush - Normal Saline) 10 ml IVF PRN PRN PRN Reason: Saline Flush Tamsulosin HCl (Flomax) 0.4 mg PO HS [facility] Last Admin: 02/09/18 19:52 Dose: 0.4 mg Throat Lozenges (Cepastat Lozenges) 1 beverly PO Q2H PRN PRN Reason: Sore Throat Last Admin: 02/07/18 22:17 Dose: 1 beverly Tramadol HCl (Ultram) 50 mg PO Q6H PRN PRN Reason: Mild Pain (1-3) Tramadol HCl (Ultram) 100 mg PO Q6H PRN PRN Reason: Moderate Pain 4-6 Zolpidem Tartrate (Ambien) 5 mg PO HSPRN PRN PRN Reason: Insomnia Last Admin: 02/09/18 19:58 Dose: 5 mg
[2018-02-10] MEDS: CeleCOXIB 100 MG CAP PO SCH (09:49)
[2018-02-10] MEDS: Senokot S 8.6-50 MG TAB PO SCH (09:49)
[2018-02-10] MEDS: Ferrous Gluconate 324 MG TAB PO SCH (09:50)
[2018-02-10] MEDS: Aspirin 81 mg Enteric Coated Tablet PO SCH (09:50)
[2018-02-10] MEDS: Losartan 25 MG TAB PO SCH (09:50)
[2018-02-10] MEDS: Multivitamin W/ Minerals 1 TAB PO SCH (09:50)
[2018-02-10] MEDS: Sodium Chloride 0.9% 1,000 ML IV SCH (12:20)
[2018-02-10 13:23] VITALS: BP 122/69; TEMP 97.6
== END 2018-02-10 14:08 | disposition home or self-care (01) | DRG 470 ==
LOC: SURG A 02-06 05:24 → SJJU 02-06 10:59
PROVIDERS: ADMIT Orthopaedic Surgery; ATTEND Orthopaedic Surgery
PROC: 0SRD0J9 Replacement of Left Knee Joint with Synthetic Substitute, Cemented, Open Approach (ICD-10-PCS; principal; 2018-02-06)
DX: M17.12 Unilateral primary osteoarthritis, left knee (principal); D62 Acute posthemorrhagic anemia; N40.0 Benign prostatic hyperplasia without lower urinary tract symptoms; I10 Essential (primary) hypertension; D72.829 Elevated white blood cell count, unspecified; Z87.891 Personal history of nicotine dependence
CPT/HCPCS: 36415; 85027; 96374; A4216; C1713; C1776; G8978-GP-CK; G8979-GP-CI; J0360; J1100; J1885; J2250; J2405; J2704; J2795; J3010; J3370; J3490; J7050; S0020

== ENCOUNTER 2018-02-03 09:20 | Outpatient (CLI) | payer BC, MEDICARE | END 2018-02-03 09:21 | disposition home or self-care (01) | LOC: LABBT 09:20 | PROVIDERS: ATTEND Orthopaedic Surgery | DX: Z01.818 Encounter for other preprocedural examination (principal); M17.12 Unilateral primary osteoarthritis, left knee | CPT/HCPCS: 86850; 86900; 86901 ==

== ENCOUNTER 2019-01-30 04:26 | Outpatient (CLI) | payer BC, MEDICARE ==
[2019-01-30 11:11] LABS: #Basophils 0.1 thou/uL (0.0-0.2); #Eosinphils 0.2 thou/uL (0.0-0.7); #Monocytes 0.6 thou/uL (0.11-0.59); #Neutrophils 4.7 thou/uL (1.40-6.50); %Basophils 0.9 % (0.0-1.0); %Eosinophils 2.7 % (0.0-10.0); %Lymphocytes 26.4 % (21.0-51.0); %Monocytes 8.3 % (0.0-10.0); %Neutrophils 61.7 % (42.0-75.0); Hemoglobin 14.9 g/dL (14.0-18.0); Mean Corpuscular HGB CONC 33.2 g/dL (32.0-36.0); Mean Corpuscular Hemoglobin 32.6 pg (27.0-31.0); Mean Corpuscular Volume 98.1 fL (78.0-98.0); Mean Platelet Volume 7.8 fL (7.4-10.4); Platelet Count 258 thou/uL (130-400); RBC Distribution Width 12.2 % (11.5-14.5); Red Blood Cell (RBC) Count 4.56 mill/uL (4.70-6.10); White Blood Cell (WBC) Count 7.7 thou/uL (4.8-10.8)
[2019-01-30 11:17] LABS: Bilirubin Negative (Negative); Blood, Urine Negative (Negative); Clarity CLEAR (Clear); Glucose, Urine (Dipstick) Negative (Negative); Leukocyte Moderate (Negative); Nitrite Negative (Negative); Protein, Urine (Dipstick) Negative (Neg-Trace); Specific Gravity, Urine 1.023 (1.002-1.036); Urobilinogen 0.2 mg/dL (0.2-1.0); pH, Urine 6.5 (5.0-9.0)
[2019-01-30 11:18] LABS: INR-International Normal Ratio 0.9; Prothrombin Time 12.7 SEC (12.0-14.7)
[2019-01-30 11:24] LABS: Bacteria/HPF None Seen HPF (None Seen); Hyaline Casts/LPF 0-3 HYALINE CAST LPF (0-3 Hyaline); Squamous Epithelial None Seen HPF (0-3); WBC/HPF 21-50 HPF (0-3)
[2019-01-30 11:28] LABS: Yeast-AUWi Flag 42.5 (0-25.0)
[2019-01-30 11:31] LABS: RBC/HPF 0-3 HPF (0-3); Yeast-All Forms None Seen HPF (None Seen)
[2019-01-30 11:34] LABS: Anion Gap 12 mmol/L (10-20); BUN (Urea Nitrogen) 20 mg/dL (8.4-25.7); Calc. Creatinine Clearance 0 mL/min (70-130); Calcium 9.9 mg/dL (7.8-10.44); Carbon Dioxide 28 mmol/L (23-31); Chloride 104 mmol/L (98-107); Estimated GFR-MDRD 77; Glucose 112 mg/dL (80-115); Potassium 4.6 mmol/L (3.5-5.1); Sodium 139 mmol/L (136-145)
== END 2019-01-30 04:27 | disposition home or self-care (01) ==
LOC: LABBT 04:26
PROVIDERS: ATTEND Orthopaedic Surgery
DX: Z01.818 Encounter for other preprocedural examination (principal); M17.11 Unilateral primary osteoarthritis, right knee
CPT/HCPCS: 80048; 81001; 85025; 85610; 86850; 86900; 86901; 87081; 93005; 93010

== ENCOUNTER 2019-01-30 10:00 | Inpatient (IN) | payer BC, MEDICARE ==
[2019-01-30 09:56] VITALS: BMI 35.1
[2019-02-05] MEDS ORDERED: Vancomycin HCl 1.5 GM in Sodium Chloride 0.9% 250 ML 300 ML IVPB SCH ×2 (06:15→07:15)
[2019-02-05] MEDS ORDERED: Tranexamic Acid 1,000 MG/10 ML VIAL ONE ×2 (06:19→09:20)
[2019-02-05] MEDS ORDERED: Sodium Chloride 0.9% 100 ML ONE (06:19)
[2019-02-05] MEDS ORDERED: Lidocaine 1% (PF) 30 ML VIAL ONE (06:31)
[2019-02-05] MEDS ORDERED: Fentanyl 100 MCG/2 ML VIAL ONE (06:31)
[2019-02-05] MEDS ORDERED: Midazolam HCl 2 mg/2 ml Vial ONE (06:31)
[2019-02-05] MEDS ORDERED: Bupivacaine PF 0.5% 30 ML VIAL ONE (06:34)
[2019-02-05] MEDS ORDERED: Acetaminophen 325 MG TAB PO PRN (07:05)
[2019-02-05] MEDS ORDERED: HYDROcodone/Acetaminophen 10/325 mg Tablet PO PRN (07:05)
[2019-02-05] MEDS ORDERED: Fentanyl 100 MCG/2 ML VIAL SLOW IVP PRN ×2 (07:05→07:24)
[2019-02-05] MEDS ORDERED: Promethazine HCl 25 MG/ML VIAL IM PRN ×2 (07:05→09:16)
[2019-02-05] MEDS ORDERED: Zolpidem Tartrate 5 MG TAB PO PRN (07:05)
[2019-02-05] MEDS ORDERED: Tranexamic Acid 1,000 MG in Sodium Chloride 0.9% 100 ML IVPB SCH (07:30)
[2019-02-05] MEDS ORDERED: Ropivacaine 0.2% HCl/PF (40 MG/20 ML VIAL) ONE (09:04)
[2019-02-05] MEDS ORDERED: Ropivacaine 0.5% HCl/PF (150 MG/30 ML VIAL) ONE (09:04)
[2019-02-05] MEDS ORDERED: Ondansetron HCl/PF 4 MG/2 ML Vial IVP PRN (09:16)
[2019-02-05] MEDS ORDERED: Promethazine HCl 25 MG/ML VIAL SLOW IVP PRN (09:16)
[2019-02-05] MEDS ORDERED: Lidocaine 1% PF 5 ML VIAL ONE (09:19)
[2019-02-05] MEDS ORDERED: ePHEDrine 50 MG/ML VIAL ONE (09:19)
[2019-02-05] MEDS ORDERED: PROPOFOL 200 MG/20 ML VIAL ONE (09:19)
[2019-02-05] MEDS ORDERED: Ondansetron PF 4 MG/2 ML Vial ONE (09:19)
[2019-02-05] MEDS: Ondansetron PF 4 MG/2 ML Vial IVP PRN (11:06)
[2019-02-05] MEDS: Aspirin 81 mg Enteric Coated Tablet PO SCH ×2 (11:32→20:08)
[2019-02-05] MEDS: Losartan 25 MG TAB PO SCH (11:32)
[2019-02-05] MEDS: Ketorolac Tromethamine 30 MG/ML VIAL IVP SCH ×3 (11:39→20:09)
[2019-02-05] MEDS: Sodium Chloride 0.9% 1,000 ML IV SCH ×3 (11:39→20:49)
[2019-02-05] MEDS: Ferrous Gluconate 324 MG TAB PO SCH ×2 (11:40→20:08)
[2019-02-05] MEDS: Multivitamin W/ Minerals 1 TAB PO SCH (11:40)
[2019-02-05] MEDS: Senokot S 8.6-50 MG TAB PO SCH ×2 (11:41→20:08)
--- NOTE | 2019-02-05 12:25 | HP ---
HISTORY OF PRESENT ILLNESS: Referred to [facility] for medical management by Dr. Suarez. The patient is status post right total knee replacement this morning. He has had no chest pain, shortness of breath, fevers, sweats, or chills. Postoperatively, he has some mild nausea, which has resolved. PAST MEDICAL HISTORY: 1. Osteoarthritis in both knees. 2. Hypertension. 3. Prostatism. CURRENT MEDICATIONS: 1. Losartan 100 mg a day. 2. Aspirin 81 mg a day. 3. Flomax 0.4 mg at bedtime. ALLERGIES: NO KNOWN DRUG ALLERGIES. PAST SURGICAL HISTORY: 1. He has had arthroscopic surgery on both knees. 2. He has had a left total knee replacement. 3. Today, right total knee replacement. FAMILY HISTORY: His father of lung cancer, he was a smoker. 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 No tobacco. Occasional wine. REVIEW OF SYSTEMS: GENERAL: No headache, dizziness, or fainting. EYES: No double vision, blurred vision, or flashing lights. EARS, NOSE, AND THROAT: No ear pain or drainage. No nasal bleeding. No trouble swallowing. CARDIAC: No chest pain, orthopnea, or paroxysmal nocturnal dyspnea. RESPIRATION: No cough, wheezing, or asthma. GASTROINTESTINAL: No nausea, vomiting, diarrhea, or constipation. GENITOURINARY: No hematuria or dysuria. MUSCULOSKELETAL: Pain in both knees prior to his left total knee replacement. He was having severe pain with ambulation prior to this right total knee replacement. NEUROLOGICAL: No strokes, seizures, or focal weakness. PSYCHIATRIC: No anxiety or depression. SKIN: No bruising, bleeding, or rash. HEME/LYMPH: No tender or swollen lymph nodes in axilla, inguinal, or cervical area. PHYSICAL EXAMINATION: GENERAL: Alert, cooperative, pleasant gentleman. VITAL SIGNS: Respirations 16, blood pressure 133/70, pulse 72, and afebrile. HEENT: Examination of head, eyes, ears, nose, and throat reveals pupils equal, round, and reactive to light, extraocular movements intact, sclerae are white, tympanic membranes clear, nose is clear. Oral mucous membranes are wet. Dental hygiene is good. NECK: Supple without jugular venous distention, adenopathy, or thyromegaly. CHEST: Clear to auscultation and percussion. HEART: Regular rate and rhythm. First and second second heart sounds are clear. There are no appreciated murmurs or gallops. ABDOMEN: Soft. Bowel sounds are normal. There is no hepatosplenomegaly. No masses. No bruits. EXTREMITIES: No cyanosis, clubbing, or edema. PULSES: Carotid, radial, femoral, and dorsalis pedis pulses intact. SKIN: Warm and dry. There is a bandage over the right knee. LYMPHATIC SURVEY: No tender or swollen lymph nodes in the axilla, inguinal, or cervical area. NEUROLOGIC: Cranial nerves 2 through 12 are intact. Moves all extremities. Plantar response downgoing. DIAGNOSTIC STUDIES: EKG; mild sinus bradycardia, otherwise normal, reviewed by me. X-rays, none presented. LABORATORY DATA: Done on 01/30/2019; CBC normal. INR 0.9. Basic metabolic profile normal. Urine had 21-50 white cells with moderate leukocyte esterase. DIAGNOSES: 1. Postoperative right total knee replacement. 2. Osteoarthritis, severe. 3. Hypertension. 4. Benign prostatic hypertrophy with prostatism. 5. Sinus bradycardia. ASSESSMENT: The patient is stable postoperative. I agree with continuing home medicines. We will follow with you. Job ID: [id number]
[2019-02-05] MEDS: CEFAZOLIN 2 GM in Premix Bag 1 BAG IVPB SCH ×2 (14:22→20:08)
--- NOTE | 2019-02-05 15:33 | OP ---
DATE OF PROCEDURE: 02/05/2019 PREOPERATIVE DIAGNOSIS: Right knee osteoarthrosis. POSTOPERATIVE DIAGNOSIS: Right knee osteoarthrosis. PROCEDURE PERFORMED: Right total knee replacement using [employer] pinless navigation. PHARMACY ORDER ENTRY TECHNICIAN: Mau Richey PA-C BLOOD LOSS: Minimal. COMPLICATIONS: None. ANESTHESIA: He had general anesthetic as well as preoperative block. He went to recovery room in stable condition. IMPLANTS: To the right knee, triathlon total knee system, the femur is size 5, cruciate retaining. We used a size 5 primary tibial base plate with a 5 x 9 mm CS X3 poly and an asymmetric 29 x 9 X3 patella. DISPOSITION: He did go to recovery room in stable condition. INDICATIONS: This is a 68-year-old male, who had his left knee replaced about a year ago and continues to have severe problems and pain with his right knee. At this time, he wished to have that replaced as well. PROCEDURE IN DETAIL: After all appropriate consent forms were explained and signed, the patient was taken back to the operating room and at this time was given general anesthetic. Once the level of anesthesia was appropriate, a well-padded tourniquet was placed on the right leg, and the leg was then prepped and draped in standard surgical fashion. The limb was exsanguinated and tourniquet taken up to 300 mmHg. Midline incision was made with a 10 blade down through the skin and subcutaneous tissue. Bovie electrocautery was used to coagulate any brisk venous bleeding. A new blade was used to make a medial parapatellar arthrotomy. Small subperiosteal release was performed medially and excess fat pad was removed. The knee was flexed up to gain access to the femur. The femur was navigated and distal femoral resection was made. Epicondylar access was used to align our sizing jig and this was pinned in place. We sized our femur to be a 5. 4:1 cutting block was applied and pinned. Anterior and posterior chamfer cuts were then made. We navigated out our proximal tibia and made our proximal tibial resection. Spreaders were used to remove any posterior osteophytes off the back of the femur as well as remaining meniscal tissue. A long alignment tammy was then used to achieve correct rotation of our tibial baseplate and a size 5 was chosen. This was pinned in place. We trialed the polyethylene and a 5 x 9 mm CS X3 polyethylene gave us full extension and good stability throughout range of motion. Two towel clips and a saw were used to cut our patella. Three lug nuts were drilled and asymmetric 29 x 9 X3 patella was trialed which sat nicely in the trochlear groove. We then drilled our femur and punched our tibia. All components were removed. The knee was thoroughly irrigated and dried. Cement was mixed into the cement gun on the back table. Components were then placed. The knee was held out in full extension until the cement had dried. All excess bone cement was removed. Multiple #2 Vicryl stitches as well as a Quill were used to close our extensor mechanism. 0 Quill followed by a running Monoderm was then used to close the skin. Surgicel glue was then used on the skin. Once this had dried, soft tissue dressing was applied to the limb, tourniquet was let down, and the toes pinked up nicely. The patient was then awakened and taken to the recovery room in stable condition. All counts were correct at the end of the case. The patient did receive preoperative IV antibiotics. The patient was injected with Exparel for postoperative pain relief. Job ID: [id number]
[2019-02-05] MEDS: Tamsulosin HCl 0.4 MG CAP PO SCH (20:08)
[2019-02-05] MEDS: diphenhydrAMINE 25 MG CAP PO PRN (20:08)
[2019-02-05] MEDS: HYDROcodone/Acetaminophen 10/325 mg Tablet PO PRN (20:08)
[2019-02-06] MEDS: HYDROcodone/Acetaminophen 10/325 mg Tablet PO PRN ×4 (00:22→19:59)
[2019-02-06 04:47] LABS: Hemoglobin 12.8 g/dL (14.0-18.0); Mean Corpuscular HGB CONC 33.8 g/dL (32.0-36.0); Mean Corpuscular Hemoglobin 33.5 pg (27.0-31.0); Mean Corpuscular Volume 98.9 fL (78.0-98.0); Mean Platelet Volume 7.8 fL (7.4-10.4); Platelet Count 205 thou/uL (130-400); RBC Distribution Width 12.3 % (11.5-14.5); Red Blood Cell (RBC) Count 3.84 mill/uL (4.70-6.10); White Blood Cell (WBC) Count 14.6 thou/uL (4.8-10.8)
[2019-02-06] MEDS: Ketorolac Tromethamine 30 MG/ML VIAL IVP SCH ×3 (06:11→21:43)
[2019-02-06] MEDS: Losartan 25 MG TAB PO SCH (08:15)
[2019-02-06] MEDS: Senokot S 8.6-50 MG TAB PO SCH ×2 (08:15→19:58)
[2019-02-06] MEDS: Aspirin 81 mg Enteric Coated Tablet PO SCH ×2 (08:15→19:59)
[2019-02-06] MEDS: Ferrous Gluconate 324 MG TAB PO SCH ×2 (08:16→19:59)
[2019-02-06] MEDS: Multivitamin W/ Minerals 1 TAB PO SCH (08:16)
[2019-02-06] MEDS: traMADol HCl 50 MG TAB PO PRN (08:22)
[2019-02-06] MEDS ORDERED: Bupivacaine HCl 0.5%/Epinephrine 1:200,000/PF 30 ml Vial ONE (10:10)
[2019-02-06] MEDS: Ropivacaine HCl/PF 250 ML in Premix Bag 1 BAG NERVE BLCK SCH (10:18)
[2019-02-06] MEDS: Cepastat Lozenges 1 LOZ PO PRN ×2 (11:36→20:05)
--- NOTE | 2019-02-06 13:03 | PRG ---
DATE OF SERVICE: 02/06/2019 SUBJECTIVE: Mychal is a 68-year-old white male, who is postop day 1 from a right total knee arthroplasty. He is doing relatively well, but he is having some difficulty at arising from a seated to standing position and back and forth to the bathroom. He ambulated approximately 50 feet yesterday. OBJECTIVE: VITAL SIGNS: Temperature 98.7, pulse 80, respiratory rate 16 and nonlabored, O2 saturation is 96% on room air, and blood pressure is 136/78. GENERAL: He is alert and oriented to person, place, time, situation, grossly nonfocal. He is appropriate, responsive with examiner, converses easily. EXTREMITIES: Visual inspection of the right lower extremity demonstrates his incision to be clean without erythema. Dressing is intact. No strike-through is noted. He is neurovascularly intact in both lower extremities with good 5/5 strength, dorsiflexion, inversion, eversion. Sensation is intact. LABORATORY DATA: Hemoglobin and hematocrit of 12.8 and 37.9. IMPRESSION: 1. This is a 68-year-old white male, postop day #1 right total knee arthroplasty, doing well. 2. Postoperative asymptomatic anemia. PLAN: Continue current care. Recheck tomorrow. Job ID: [id number]
[2019-02-06] MEDS: Sodium Chloride 0.9% 1,000 ML IV SCH (14:25)
--- NOTE | 2019-02-06 15:43 | PDOC.PN ---
- Subjective Encounter Start Date: 02/06/19 Encounter Start Time: 15:41 Subjective: feels well. walking w PT. knee pain controlled -: no CP/SOB - Objective MAR Reviewed: Yes Vital Signs & Weight: Vital Signs (12 hours) Temp Pulse Resp BP BP Pulse Ox 02/06/19 14:56 98.2 F 76 16 165/75 H 94 L 02/06/19 12:39 98.2 F 77 18 133/79 94 L 02/06/19 07:27 98.7 F 79 16 134/75 96 02/06/19 04:16 98 F 72 18 136/78 93 L Weight Admit Weight 252 lb Weight 252 lb I&O: 02/05/19 02/06/19 02/07/19 06:59 06:59 06:59 Intake Total 3070 Output Total 1430 Balance 1640 Result Diagrams: 02/06/19 04:17 Additional Labs: Laboratory Tests 01/30/19 01/30/19 02/06/19 10:36 10:36 04:17 Hgb 14.9 12.8 L Sodium 139 Potassium 4.6 Chloride 104 Carbon Dioxide 28 Anion Gap 12 BUN 20 Creatinine 0.97 Phys Exam - Physical Examination Constitutional: NAD walking w PT w walker HEENT: PERRLA, moist MMs, sclera anicteric, oral pharynx no lesions Neck: no nodes, no JVD, supple, full ROM Respiratory: no wheezing, no rales, no rhonchi, clear to auscultation bilateral Cardiovascular: RRR, no significant murmur Gastrointestinal: soft, non-tender, no distention, positive bowel sounds Musculoskeletal: no edema, pulses present Neurological: non-focal, normal sensation, moves all 4 limbs Psychiatric: normal affect, A&O x 3 Skin: no rash Dx/Plan (1) Hypertension Code(s): I10 - ESSENTIAL (PRIMARY) HYPERTENSION Status: Chronic Comment: resume home medications.On Losartan , monitor vital signs and titrate antihypertensives as needed. PRN IV hydralazine for blood pressure spikes. (2) Arthritis Code(s): M19.90 - UNSPECIFIED OSTEOARTHRITIS, UNSPECIFIED SITE Status: Chronic Comment: s/p R knee surgery. pain management and DVT prophylaxis per orthopedic surgery-ASA BID (3) Status post total right knee replacement Code(s): Z96.651 - PRESENCE OF RIGHT ARTIFICIAL KNEE JOINT Status: Acute Comment: Pain control.OT/PT (4) BPH (benign prostatic hyperplasia) Code(s): N40.0 - BENIGN PROSTATIC HYPERPLASIA WITHOUT LOWER URINRY TRACT SYMP Status: Chronic Comment: resume home medications. - Plan PT/OT, DVT proph w/SCDs AM labs -: HD stable -: IM team will follow * . Review of Systems - Review of Systems Constitutional: negative: fever, chills, sweats, weakness, malaise, other ENT: negative: Ear Pain, Ear Discharge, Nose Pain, Nose Discharge, Nose Congestion, Mouth Pain, Mouth Swelling, Throat Pain, Throat Swelling, Other Respiratory: negative: Cough, Dry, Shortness of Breath, Hemoptysis, SOB with Excertion, Pleuritic Pain, Sputum, Wheezing Cardiovascular: negative: chest pain, palpitations, orthopnea, paroxysmal nocturnal dyspnea, edema, light headedness, other Gastrointestinal: negative: Nausea, Vomiting, Abdominal Pain, Diarrhea, Constipation, Melena, Hematochezia, Other Genitourinary: negative: Dysuria, Frequency, Incontinence, Hematuria, Retention , Other Musculoskeletal: negative: Neck Pain, Shoulder Pain, Arm Pain, Back Pain, Hand Pain, Leg Pain, Foot Pain, Other Neurological: negative: Weakness, Numbness, Incoordination, Change in Speech, Confusion, Seizures, Other - Medications/Allergies Allergies/Adverse Reactions: Allergies Allergy/AdvReac Type Severity Reaction Status Date / Time No Known Allergies Allergy Unverified 01/30/19 09:58 Medications: Current Medications Acetaminophen (Tylenol) 650 mg PO Q4H PRN PRN Reason: Headache/Fever or Pain Hydrocodone Bitart/Acetaminophen ([place] 10/325) 1 tab PO Q4H PRN PRN Reason: Moderate Pain (4-6) Hydrocodone Bitart/Acetaminophen ([place] 10/325) 2 tab PO Q4H PRN PRN Reason: Severe Pain (7-10) Last Admin: 02/06/19 11:34 Dose: 2 tab Aspirin (Ecotrin) 81 mg PO BID [facility] Last Admin: 02/06/19 08:15 Dose: 81 mg Diphenhydramine HCl (Benadryl) 25 mg PO Q6H PRN PRN Reason: Itching Last Admin: 02/05/19 20:08 Dose: 25 mg Fentanyl (Sublimaze) 100 mcg SLOW IVP Q1H PRN PRN Reason: Severe Pain (7-10) Last Admin: 02/05/19 22:55 Dose: 100 mcg Fentanyl (Sublimaze) 50 mcg SLOW IVP Q1H PRN PRN Reason: Breakthrough Pain Ferrous Gluconate (Fergon) 324 mg PO BID [facility] Last Admin: 02/06/19 08:16 Dose: 324 mg Vancomycin HCl 1.5 gm/ Sodium (Chloride) 300 mls @ 200 mls/hr IVPB ONCALL-OR [facility] Sodium Chloride (Normal Saline 0.9%) 1,000 mls @ 100 mls/hr IV .Q10H [facility] Last Admin: 02/06/19 14:25 Dose: Not Given Ropivacaine 250 ml/ Device 250 mls @ 10 mls/hr NERVE BLCK INF [facility] Last Admin: 02/06/19 10:18 Dose: 250 mls Iron/Minerals/Multivitamins (Theragran M) 1 tab PO DAILY [facility] Last Admin: 02/06/19 08:16 Dose: 1 tab Ketorolac Tromethamine (Toradol) 15 mg IVP Q8HR [facility] Stop: 02/07/19 06:01 Last Admin: 02/06/19 14:34 Dose: 15 mg Losartan Potassium (Cozaar) 100 mg PO DAILY [facility] Last Admin: 02/06/19 08:15 Dose: 100 mg Ondansetron HCl (Zofran) 4 mg IVP Q6H PRN PRN Reason: Nausea/Vomiting Last Admin: 02/05/19 11:06 Dose: 4 mg Promethazine HCl (Phenergan) 12.5 mg IM Q4H PRN PRN Reason: Nausea/Vomiting Senna/Docusate Sodium (Senokot S) 2 tab PO BID [facility] Last Admin: 02/06/19 08:15 Dose: 2 tab Sodium Chloride (Flush - Normal Saline) 10 ml IVF PRN PRN PRN Reason: Saline Flush Last Admin: 02/06/19 14:37 Dose: 10 ml Tamsulosin HCl (Flomax) 0.4 mg PO HS [facility] Last Admin: 02/05/19 20:08 Dose: 0.4 mg Throat Lozenges (Cepastat Lozenges) 1 beverly PO Q4H PRN PRN Reason: Sore Throat Last Admin: 02/06/19 11:36 Dose: 1 beverly Tramadol HCl (Ultram) 100 mg PO Q6H PRN PRN Reason: Moderate Pain (4-6) Last Admin: 02/06/19 08:22 Dose: 100 mg Zolpidem Tartrate (Ambien) 5 mg PO HSPRN PRN PRN Reason: Insomnia
[2019-02-06] MEDS: Tamsulosin HCl 0.4 MG CAP PO SCH (19:59)
[2019-02-06] MEDS: diphenhydrAMINE 25 MG CAP PO PRN (19:59)
[2019-02-07] MEDS: Sodium Chloride 0.9% 1,000 ML IV SCH ×3 (00:06→18:52)
[2019-02-07] MEDS: Ketorolac Tromethamine 30 MG/ML VIAL IVP SCH (06:00)
[2019-02-07] MEDS: HYDROcodone/Acetaminophen 10/325 mg Tablet PO PRN ×3 (06:14→19:18)
[2019-02-07 06:54] LABS: Hemoglobin 12.9 g/dL (14.0-18.0); Mean Corpuscular HGB CONC 33.4 g/dL (32.0-36.0); Mean Corpuscular Hemoglobin 33.1 pg (27.0-31.0); Mean Corpuscular Volume 99.2 fL (78.0-98.0); Mean Platelet Volume 8.5 fL (7.4-10.4); Platelet Count 205 thou/uL (130-400); RBC Distribution Width 12.3 % (11.5-14.5); White Blood Cell (WBC) Count 16.3 thou/uL (4.8-10.8)
[2019-02-07] MEDS ORDERED: Bisacodyl 5 MG TAB PO PRN (06:56)
[2019-02-07] MEDS: Ondansetron PF 4 MG/2 ML Vial IVP PRN (07:06)
[2019-02-07] MEDS: Ropivacaine HCl/PF 250 ML in Premix Bag 1 BAG NERVE BLCK SCH (07:07)
[2019-02-07 07:13] LABS: Anion Gap 13 mmol/L (10-20); BUN (Urea Nitrogen) 19 mg/dL (8.4-25.7); Calc. Creatinine Clearance 106 mL/min (70-130); Calcium 9.8 mg/dL (7.8-10.44); Carbon Dioxide 25 mmol/L (23-31); Chloride 100 mmol/L (98-107); Estimated GFR-MDRD 68; Glucose 119 mg/dL (80-115); Potassium 3.9 mmol/L (3.5-5.1); Sodium 134 mmol/L (136-145)
[2019-02-07] MEDS: Ferrous Gluconate 324 MG TAB PO SCH ×2 (08:21→20:11)
[2019-02-07] MEDS: Losartan 25 MG TAB PO SCH (08:21)
[2019-02-07] MEDS: Senokot S 8.6-50 MG TAB PO SCH ×2 (08:21→20:11)
[2019-02-07] MEDS: Aspirin 81 mg Enteric Coated Tablet PO SCH ×2 (08:22→20:11)
[2019-02-07] MEDS: traMADol HCl 50 MG TAB PO PRN (08:22)
[2019-02-07] MEDS: Multivitamin W/ Minerals 1 TAB PO SCH (08:22)
--- NOTE | 2019-02-07 09:00 | PRG ---
DATE OF SERVICE: 02/07/2019 SUBJECTIVE: Mychal is a 68-year-old male who is postop day 2 from a right total knee arthroplasty. 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 His ambulatory numbers look good and distance is about 150 feet. Overall to me, he is doing relatively well in terms of pain control, but his independence is a little sluggish. OBJECTIVE: VITAL SIGNS: Temperature 98.2, pulse 75, respiratory rate 16, blood pressure 143/76. GENERAL: He is alert and oriented to person, place, time, situation, conversive and appropriate with examiner. EXTREMITIES: His incision is clean and closed, without erythema, and he is neurovascularly intact in the involved extremity. LABORATORY DATA: Hemoglobin and hematocrit 12.9 and 38.7. His chemistry demonstrated sodium 134 and elevated glucose of 119. He does have slight white count. IMPRESSION: 1. A 68-year-old white male, postoperative day 2, right total knee arthroplasty secondary to osteoarthritis. 2. Hypertension. 3. Hyponatremia, mild. 4. Hemorrhagic anemia. 5. Hyperglycemia. 6. Leukocytosis. PLAN: Continue current care. I will continue to observe. We may need to treat the blood pressure and bring it down a little bit and watch his sodium, so it does not continue to trend down. I do not think he is on the thiazide diuretic. We will recheck the patient tomorrow and hopefully, his independence will improve. Job ID: [id number]
[2019-02-07] MEDS ORDERED: Polyethylene Glycol 3350 17 GM Packet PO PRN (11:17)
[2019-02-07] MEDS ORDERED: Sodium Chloride 0.65% Nasal 44 ML BOT EA NARE PRN (11:18)
[2019-02-07] MEDS ORDERED: Benzonatate 100 MG CAP PO PRN (11:18)
[2019-02-07] MEDS ORDERED: cloNIDine 0.1 MG TAB PO PRN (11:18)
[2019-02-07] MEDS ORDERED: hydrALAZINE 20 MG/ML VIAL SLOW IVP PRN (11:18)
[2019-02-07] MEDS ORDERED: Diabetic Tussin 200 MG/10 ML UDCUP PO PRN (11:18)
[2019-02-07] MEDS ORDERED: Calcium Carbonate 500 MG ChewTAB PO PRN (11:18)
[2019-02-07] MEDS ORDERED: Polyethylene Glycol 3350 17 GM Packet PO SCH (11:30)
--- NOTE | 2019-02-07 15:10 | PDOC.PN ---
- Subjective Encounter Start Date: 02/07/19 Encounter Start Time: 15:09 Subjective: constipated ,otherwise feels well -: no overnight events -: seen in group PT - Objective MAR Reviewed: Yes Vital Signs & Weight: Vital Signs (12 hours) Temp Pulse Resp BP BP Pulse Ox 02/07/19 11:53 97.3 F L 60 18 166/74 H 96 02/07/19 07:58 97.7 F 81 18 149/71 H 91 L 02/07/19 04:25 98.2 F 75 16 143/76 H 96 Weight Admit Weight 252 lb Weight 252 lb I&O: 02/06/19 02/07/19 02/08/19 06:59 06:59 06:59 Intake Total 3070 1470 900 Output Total 1430 Balance 1640 1470 900 Result Diagrams: 02/07/19 06:16 02/07/19 06:16 Phys Exam - Physical Examination Constitutional: NAD HEENT: PERRLA, moist MMs, sclera anicteric, oral pharynx no lesions Neck: no nodes, no JVD, supple, full ROM Respiratory: no wheezing, no rales, no rhonchi, clear to auscultation bilateral Cardiovascular: RRR, no significant murmur Gastrointestinal: soft, non-tender, no distention, positive bowel sounds Musculoskeletal: no edema, pulses present Neurological: non-focal, normal sensation, moves all 4 limbs Psychiatric: normal affect, A&O x 3 Dx/Plan (1) Hypertension Code(s): I10 - ESSENTIAL (PRIMARY) HYPERTENSION Status: Chronic Comment: resume home medications.On Losartan , monitor vital signs and titrate antihypertensives as needed. PRN IV hydralazine for blood pressure spikes. (2) Arthritis Code(s): M19.90 - UNSPECIFIED OSTEOARTHRITIS, UNSPECIFIED SITE Status: Chronic Comment: s/p R knee surgery. pain management and DVT prophylaxis per orthopedic surgery-ASA BID (3) Status post total right knee replacement Code(s): Z96.651 - PRESENCE OF RIGHT ARTIFICIAL KNEE JOINT Status: Acute Comment: Pain control.OT/PT (4) BPH (benign prostatic hyperplasia) Code(s): N40.0 - BENIGN PROSTATIC HYPERPLASIA WITHOUT LOWER URINRY TRACT SYMP Status: Chronic Comment: resume home medications. - Plan PT/OT, respiratory therapy, incentive spirometry, out of bed/ambulate, DVT proph w/SCDs add prn laxatives.1 dose miralax today -: am labs -: sodium slightly low.recheck -: monitor WBCtrend.slightly high today but no clinical evidence of Infection -: IM team will follow * . Review of Systems - Review of Systems Constitutional: negative: fever, chills, sweats, weakness, malaise, other ENT: negative: Ear Pain, Ear Discharge, Nose Pain, Nose Discharge, Nose Congestion, Mouth Pain, Mouth Swelling, Throat Pain, Throat Swelling, Other Respiratory: negative: Cough, Dry, Shortness of Breath, Hemoptysis, SOB with Excertion, Pleuritic Pain, Sputum, Wheezing Cardiovascular: negative: chest pain, palpitations, orthopnea, paroxysmal nocturnal dyspnea, edema, light headedness, other Gastrointestinal: Constipation. negative: Nausea, Vomiting, Abdominal Pain, Diarrhea, Melena, Hematochezia, Other Genitourinary: negative: Dysuria, Frequency, Incontinence, Hematuria, Retention , Other Musculoskeletal: negative: Neck Pain, Shoulder Pain, Arm Pain, Back Pain, Hand Pain, Leg Pain, Foot Pain, Other Neurological: negative: Weakness, Numbness, Incoordination, Change in Speech, Confusion, Seizures, Other - Medications/Allergies Allergies/Adverse Reactions: Allergies Allergy/AdvReac Type Severity Reaction Status Date / Time No Known Allergies Allergy Unverified 01/30/19 09:58 Medications: Current Medications Acetaminophen (Tylenol) 650 mg PO Q4H PRN PRN Reason: Headache/Fever or Pain Hydrocodone Bitart/Acetaminophen ([place] 10/325) 1 tab PO Q4H PRN PRN Reason: Moderate Pain (4-6) Hydrocodone Bitart/Acetaminophen ([place] 10/325) 2 tab PO Q4H PRN PRN Reason: Severe Pain (7-10) Last Admin: 02/07/19 10:30 Dose: 2 tab Aspirin (Ecotrin) 81 mg PO BID [facility] Last Admin: 02/07/19 08:22 Dose: 81 mg Benzonatate (Tessalon) 100 mg PO Q6H PRN PRN Reason: Cough Bisacodyl (Dulcolax) 10 mg PO DAILYPRN PRN PRN Reason: CONSTIPATION Last Admin: 02/07/19 07:07 Dose: 10 mg Calcium Carbonate (Tums) 1,000 mg PO Q4H PRN PRN Reason: Heartburn or Indigestion Clonidine (Catapres) 0.1 mg PO Q4H PRN PRN Reason: >160 Diphenhydramine HCl (Benadryl) 25 mg PO Q6H PRN PRN Reason: Itching Last Admin: 02/06/19 19:59 Dose: 25 mg Fentanyl (Sublimaze) 100 mcg SLOW IVP Q1H PRN PRN Reason: Severe Pain (7-10) Last Admin: 02/05/19 22:55 Dose: 100 mcg Fentanyl (Sublimaze) 50 mcg SLOW IVP Q1H PRN PRN Reason: Breakthrough Pain Ferrous Gluconate (Fergon) 324 mg PO BID [facility] Last Admin: 02/07/19 08:21 Dose: 324 mg Guaifenesin (Robitussin Sf) 200 mg PO Q4H PRN PRN Reason: Cough Hydralazine HCl (Apresoline) 10 mg SLOW IVP Q4H PRN PRN Reason: SBP > 180 and HR < 70 Sodium Chloride (Normal Saline 0.9%) 1,000 mls @ 100 mls/hr IV .Q10H [facility] Last Admin: 02/07/19 08:29 Dose: Not Given Ropivacaine 250 ml/ Device 250 mls @ 10 mls/hr NERVE BLCK INF [facility] Last Admin: 02/07/19 07:07 Dose: 250 mls Iron/Minerals/Multivitamins (Theragran M) 1 tab PO DAILY [facility] Last Admin: 02/07/19 08:22 Dose: 1 tab Losartan Potassium (Cozaar) 100 mg PO DAILY [facility] Last Admin: 02/07/19 08:21 Dose: 100 mg Ondansetron HCl (Zofran) 4 mg IVP Q6H PRN PRN Reason: Nausea/Vomiting Last Admin: 02/07/19 07:06 Dose: 4 mg Polyethylene Glycol (Miralax) 17 gm PO DAILYPRN PRN PRN Reason: Constipation Promethazine HCl (Phenergan) 12.5 mg IM Q4H PRN PRN Reason: Nausea/Vomiting Senna/Docusate Sodium (Senokot S) 2 tab PO BID [facility] Last Admin: 02/07/19 08:21 Dose: 2 tab Sodium Chloride (Flush - Normal Saline) 10 ml IVF PRN PRN PRN Reason: Saline Flush Last Admin: 02/06/19 14:37 Dose: 10 ml Sodium Chloride ([place] Nasal [place] 0.65%) 0 ml EA NARE QIDPRN PRN PRN Reason: Nasal Congestion Tamsulosin HCl (Flomax) 0.4 mg PO HS [facility] Last Admin: 02/06/19 19:59 Dose: 0.4 mg Throat Lozenges (Cepastat Lozenges) 1 beverly PO Q4H PRN PRN Reason: Sore Throat Last Admin: 02/06/19 20:05 Dose: 1 beverly Tramadol HCl (Ultram) 100 mg PO Q6H PRN PRN Reason: Moderate Pain (4-6) Last Admin: 02/07/19 08:22 Dose: 100 mg Zolpidem Tartrate (Ambien) 5 mg PO HSPRN PRN PRN Reason: Insomnia
[2019-02-07] MEDS: Tamsulosin HCl 0.4 MG CAP PO SCH (20:11)
[2019-02-07] MEDS: Cepastat Lozenges 1 LOZ PO PRN (21:00)
[2019-02-08] MEDS: HYDROcodone/Acetaminophen 10/325 mg Tablet PO PRN ×5 (01:54→21:00)
[2019-02-08] MEDS: Ropivacaine HCl/PF 250 ML in Premix Bag 1 BAG NERVE BLCK SCH (03:52)
[2019-02-08 05:44] LABS: Hemoglobin 11.6 g/dL (14.0-18.0); Mean Corpuscular HGB CONC 33.4 g/dL (32.0-36.0); Mean Corpuscular Hemoglobin 33.2 pg (27.0-31.0); Mean Corpuscular Volume 99.3 fL (78.0-98.0); Mean Platelet Volume 8.3 fL (7.4-10.4); Platelet Count 219 thou/uL (130-400); RBC Distribution Width 12.3 % (11.5-14.5); Red Blood Cell (RBC) Count 3.51 mill/uL (4.70-6.10); White Blood Cell (WBC) Count 11.6 thou/uL (4.8-10.8)
[2019-02-08] MEDS: Sodium Chloride 0.9% 1,000 ML IV SCH (07:29)
[2019-02-08] MEDS: Ferrous Gluconate 324 MG TAB PO SCH ×2 (08:20→20:58)
[2019-02-08] MEDS: Senokot S 8.6-50 MG TAB PO SCH ×2 (08:20→20:58)
[2019-02-08] MEDS: Multivitamin W/ Minerals 1 TAB PO SCH (08:20)
[2019-02-08] MEDS: Aspirin 81 mg Enteric Coated Tablet PO SCH ×2 (08:20→20:58)
[2019-02-08] MEDS: Losartan 25 MG TAB PO SCH (08:20)
--- NOTE | 2019-02-08 13:00 | PDOC.PN ---
- Subjective Encounter Start Date: 02/08/19 Encounter Start Time: 12:30 Patient seen and examined for med mngt. Pain controlled. Had BM. No new complaints. No overnight events - Objective MAR Reviewed: Yes Vital Signs & Weight: Vital Signs (12 hours) Temp Pulse Resp BP Pulse Ox 02/08/19 12:22 97.6 F 76 18 159/69 H 95 02/08/19 08:20 95 02/08/19 08:01 98.2 F 75 20 158/74 H 95 02/08/19 04:35 98.4 F 75 15 124/70 93 L Weight Admit Weight 252 lb Weight 252 lb I&O: 02/07/19 02/08/19 02/09/19 06:59 06:59 06:59 Intake Total 1470 1700 450 Balance 1470 1700 450 Result Diagrams: 02/08/19 05:11 02/07/19 06:16 Phys Exam - Physical Examination Constitutional: NAD Respiratory: no wheezing, no rhonchi Cardiovascular: RRR, no rub Gastrointestinal: soft, non-tender, positive bowel sounds Musculoskeletal: no edema Neurological: moves all 4 limbs Psychiatric: A&O x 3 Dx/Plan - Plan DVT proph w/SCDs IMPRESSION: HTN BPH Obesity BMI 35.1 DJD Hyponatremia - mild CKD 2 PLAN: Cont Losartan Cont Flomax Cont IS Cont PT/OT Cont other meds as below Review of Systems - Review of Systems Respiratory: negative: Cough, Dry, Shortness of Breath, Hemoptysis, SOB with Excertion, Pleuritic Pain, Sputum, Wheezing Cardiovascular: negative: chest pain, palpitations, orthopnea, paroxysmal nocturnal dyspnea, edema, light headedness, other - Medications/Allergies Allergies/Adverse Reactions: Allergies Allergy/AdvReac Type Severity Reaction Status Date / Time No Known Allergies Allergy Unverified 01/30/19 09:58 Medications: Current Medications Acetaminophen (Tylenol) 650 mg PO Q4H PRN PRN Reason: Headache/Fever or Pain Hydrocodone Bitart/Acetaminophen ([place] 10/325) 1 tab PO Q4H PRN PRN Reason: Moderate Pain (4-6) Hydrocodone Bitart/Acetaminophen ([place] 10/325) 2 tab PO Q4H PRN PRN Reason: Severe Pain (7-10) Last Admin: 02/08/19 12:30 Dose: 2 tab Aspirin (Ecotrin) 81 mg PO BID COUNT INCLUDES THE [facility] Last Admin: 02/08/19 08:20 Dose: 81 mg Benzonatate (Tessalon) 100 mg PO Q6H PRN PRN Reason: Cough Bisacodyl (Dulcolax) 10 mg PO DAILYPRN PRN PRN Reason: CONSTIPATION Last Admin: 02/07/19 07:07 Dose: 10 mg Calcium Carbonate (Tums) 1,000 mg PO Q4H PRN PRN Reason: Heartburn or Indigestion Clonidine (Catapres) 0.1 mg PO Q4H PRN PRN Reason: >160 Diphenhydramine HCl (Benadryl) 25 mg PO Q6H PRN PRN Reason: Itching Last Admin: 02/06/19 19:59 Dose: 25 mg Fentanyl (Sublimaze) 100 mcg SLOW IVP Q1H PRN PRN Reason: Severe Pain (7-10) Last Admin: 02/05/19 22:55 Dose: 100 mcg Fentanyl (Sublimaze) 50 mcg SLOW IVP Q1H PRN PRN Reason: Breakthrough Pain Ferrous Gluconate (Fergon) 324 mg PO BID COUNT INCLUDES THE [facility] Last Admin: 02/08/19 08:20 Dose: 324 mg Guaifenesin (Robitussin Sf) 200 mg PO Q4H PRN PRN Reason: Cough Hydralazine HCl (Apresoline) 10 mg SLOW IVP Q4H PRN PRN Reason: SBP > 180 and HR < 70 Sodium Chloride (Normal Saline 0.9%) 1,000 mls @ 100 mls/hr IV .Q10H COUNT INCLUDES THE [facility] Last Admin: 02/08/19 07:29 Dose: Not Given Ropivacaine 250 ml/ Device 250 mls @ 10 mls/hr NERVE BLCK INF COUNT INCLUDES THE [facility] Last Admin: 02/08/19 03:52 Dose: 250 mls Iron/Minerals/Multivitamins (Theragran M) 1 tab PO DAILY COUNT INCLUDES THE [facility] Last Admin: 02/08/19 08:20 Dose: 1 tab Losartan Potassium (Cozaar) 100 mg PO DAILY COUNT INCLUDES THE [facility] Last Admin: 02/08/19 08:20 Dose: 100 mg Ondansetron HCl (Zofran) 4 mg IVP Q6H PRN PRN Reason: Nausea/Vomiting Last Admin: 02/07/19 07:06 Dose: 4 mg Polyethylene Glycol (Miralax) 17 gm PO DAILYPRN PRN PRN Reason: Constipation Promethazine HCl (Phenergan) 12.5 mg IM Q4H PRN PRN Reason: Nausea/Vomiting Senna/Docusate Sodium (Senokot S) 2 tab PO BID COUNT INCLUDES THE [facility] Last Admin: 02/08/19 08:20 Dose: 2 tab Sodium Chloride (Flush - Normal Saline) 10 ml IVF PRN PRN PRN Reason: Saline Flush Last Admin: 02/06/19 14:37 Dose: 10 ml Sodium Chloride ([place] Nasal [place] 0.65%) 0 ml EA NARE QIDPRN PRN PRN Reason: Nasal Congestion Tamsulosin HCl (Flomax) 0.4 mg PO HS COUNT INCLUDES THE [facility] Last Admin: 02/07/19 20:11 Dose: 0.4 mg Throat Lozenges (Cepastat Lozenges) 1 beverly PO Q4H PRN PRN Reason: Sore Throat Last Admin: 02/07/19 21:00 Dose: 1 beverly Tramadol HCl (Ultram) 100 mg PO Q6H PRN PRN Reason: Moderate Pain (4-6) Last Admin: 02/07/19 08:22 Dose: 100 mg Zolpidem Tartrate (Ambien) 5 mg PO HSPRN PRN PRN Reason: Insomnia
[2019-02-08] MEDS: diphenhydrAMINE 25 MG CAP PO PRN (16:55)
[2019-02-08] MEDS: Tamsulosin HCl 0.4 MG CAP PO SCH (20:59)
[2019-02-09] MEDS: HYDROcodone/Acetaminophen 10/325 mg Tablet PO PRN ×2 (00:36→08:18)
[2019-02-09 05:35] LABS: Hemoglobin 12.3 g/dL (14.0-18.0); Mean Corpuscular HGB CONC 33.5 g/dL (32.0-36.0); Mean Corpuscular Hemoglobin 33.3 pg (27.0-31.0); Mean Corpuscular Volume 99.2 fL (78.0-98.0); Mean Platelet Volume 8.3 fL (7.4-10.4); Platelet Count 245 thou/uL (130-400); Red Blood Cell (RBC) Count 3.71 mill/uL (4.70-6.10)
[2019-02-09 08:06] VITALS: BP 155/71; TEMP 98.2
[2019-02-09] MEDS: Senokot S 8.6-50 MG TAB PO SCH (08:17)
[2019-02-09] MEDS: Aspirin 81 mg Enteric Coated Tablet PO SCH (08:18)
[2019-02-09] MEDS: Ferrous Gluconate 324 MG TAB PO SCH (08:18)
[2019-02-09] MEDS: Losartan 25 MG TAB PO SCH (08:18)
[2019-02-09] MEDS: Multivitamin W/ Minerals 1 TAB PO SCH (08:18)
== END 2019-02-09 11:25 | disposition home or self-care (01) | DRG 470 ==
LOC: SURG A 02-05 05:39 → EDSTATUS 02-05 10:00 → SJJU 02-05 10:38
PROVIDERS: ADMIT Orthopaedic Surgery; ATTEND Orthopaedic Surgery
PROC: 0SRC0J9 Replacement of Right Knee Joint with Synthetic Substitute, Cemented, Open Approach (ICD-10-PCS; principal; 2019-02-05)
DX: M17.11 Unilateral primary osteoarthritis, right knee (principal); E87.1 Hypo-osmolality and hyponatremia; M17.0 Bilateral primary osteoarthritis of knee; N40.0 Benign prostatic hyperplasia without lower urinary tract symptoms; D64.9 Anemia, unspecified; R73.9 Hyperglycemia, unspecified; E66.9 Obesity, unspecified; N18.2 Chronic kidney disease, stage 2 (mild); Z96.652 Presence of left artificial knee joint; I12.9 Hypertensive chronic kidney disease with stage 1 through stage 4 chronic kidney disease, or unspecified chronic kidney disease; Z68.35 Body mass index [BMI] 35.0-35.9, adult; Z79.82 Long term (current) use of aspirin; Z79.899 Other long term (current) drug therapy
CPT/HCPCS: 36415; 80048; 85027; C1713; C1776; J0670; J0690; J1885; J2001; J2250; J2405; J2704; J2795; J3010; J3370; J3490; J7050; Q0163; S0020